=== PATIENT | male | born 1965 | race African-American/Black ===

== ENCOUNTER → 2016-08-03 | Outpatient (CLI) | payer OTHER ==
--- NOTE | 2016-08-03 10:06 | CT ---
EXAMINATION TYPE: CT abdomen pelvis w con DATE OF EXAM: 08/03/2016 COMPARISON: NONE HISTORY: Epigastric pain CT DLP: 979.1 mGycm, Automated Exposure Control for Dose Reduction was Utilized. CONTRAST: CT scan of the abdomen and pelvis is performed with oral and with IV Contrast, patient injected with 100 mL of Omnipaque 300. FINDINGS: LUNG BASES: No significant abnormality is appreciated. LIVER/GB: No significant abnormality is appreciated. PANCREAS: No significant abnormality is seen. SPLEEN: No significant abnormality is seen. ADRENALS: No significant abnormality is seen. KIDNEYS: No significant abnormality is seen. BOWEL: Oral contrast only reaches level of the proximal ileum in the right lower quadrant. There is n o suspicious dilatation of stomach or small bowel loops. Fecal material is seen in nondistended colon terminal ileum is felt within normal limits seen near coronal image 41. The amount of fecal material is somewhat prominent throughout the visualized colon. Appendix is upper limits of normal in size wi thout inflammatory change seen best near axial images 49 through 55. PROSTATE/SEMINAL VESICLES: Prostate gland is upper limits of normal in size slightly bulging on bladd er base. LYMPH NODES: No greater than 1cm abdominal or pelvic lymph nodes are appreciated. OSSEOUS STRUCTURES: There is mild multilevel facet arthropathy in the lower lumbar spine. OTHER: Some ectasia of the abdominal aorta is present. IMPRESSION: No bowel obstruction is seen. Perhaps mild diffuse colonic fecal stasis or constipation. No significant acute finding is otherwise seen to account for patient's clinical symptoms.
== END | disposition home or self-care (01) ==
LOC: RADCTMAIN 07:58
PROVIDERS: ATTEND Internal Medicine
DX: R10.13 Epigastric pain (principal)
CPT/HCPCS: 74177; Q9967

== ENCOUNTER 2017-04-26 12:21 | Emergency (ER) | payer OTHER ==
[2017-04-26 12:26] VITALS: BP 141/89; PULSE 104; RESP 18; TEMP 96.8
--- NOTE | 2017-04-26 12:44 | XR ---
EXAMINATION TYPE: XR Hip Complete LT DATE OF EXAM: 04/26/2017 COMPARISON: NONE HISTORY: Pain TECHNIQUE: 2 views submitted FINDINGS: There is no evidence of erosive change or acute fracture. Moderate concentric narrowing the joint. IMPRESSION: 1. No evidence of acute fracture or dislocation. 2. Hip arthropathy.
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
== END 2017-04-26 13:12 | disposition home or self-care (01) ==
LOC: EC 12:21
DX: M54.5 Low back pain (principal); M25.552 Pain in left hip; F17.200 Nicotine dependence, unspecified, uncomplicated; Z88.5 Allergy status to narcotic agent; V89.2XXA Person injured in unspecified motor-vehicle accident, traffic, initial encounter; Y92.410 Unspecified street and highway as the place of occurrence of the external cause
CPT/HCPCS: 73502; 99283

== ENCOUNTER 2017-12-25 15:25 | Emergency (ER) | payer OTHER ==
[2017-12-25 15:40] VITALS: RESP 18; TEMP 98.4
--- NOTE | 2017-12-25 16:38 | XR ---
EXAMINATION TYPE: XR hand complete RT DATE OF EXAM: 12/25/2017 COMPARISON: None HISTORY: Right hand and wrist pain since fall TECHNIQUE: Three-view right hand FINDINGS: No acute fractures are evident. Joint spaces are preserved. Soft tissues are somewhat promi nent over the hand. Note is made of an old fifth metacarpal fracture. IMPRESSION: 1. No acute osseous abnormality. 2. Soft tissue swelling over the dorsum of the hand.
--- NOTE | 2017-12-25 16:39 | XR ---
EXAMINATION TYPE: XR wrist complete RT DATE OF EXAM: 12/25/2017 COMPARISON: None HISTORY: Pain in wrist since fall TECHNIQUE: 4 view right wrist FINDINGS: Soft tissue swelling is over the dorsum of the hand. Old fifth metacarpal fracture is withi n the [id number]. No acute fractures are evident. Joint spaces are preserved. If there is pain at the anatomic snuff box, nuclear medicine bone scan would be recommended for addit ional evaluation. Follow-up exams of the hand and wrist can be performed 7-10 days from acute trauma for continued pain. IMPRESSION: 1. Normal 4 view right wrist. 2. Soft tissue swelling dorsum of hand.
[2017-12-25] MEDS ORDERED: HYDROcodone/APAP 5-325MG 1 EACH TAB PO STA (17:02)
[2017-12-25 17:59] VITALS: BP 163/75; PULSE 87
[2017-12-25] MEDS ORDERED: ACET/COD 300 MG/30 MG STARTER PACK 6 TAB BTL PO STA (18:08)
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
== END 2017-12-25 18:21 | disposition home or self-care (01) ==
LOC: EC 15:25
DX: S63.91XA Sprain of unspecified part of right wrist and hand, initial encounter (principal); F17.200 Nicotine dependence, unspecified, uncomplicated; Z88.5 Allergy status to narcotic agent; W01.0XXA Fall on same level from slipping, tripping and stumbling without subsequent striking against object, initial encounter; Y93.01 Activity, walking, marching and hiking
CPT/HCPCS: 29125; 99284

== ENCOUNTER 2018-04-10 16:10 | Emergency (ER) | payer OTHER ==
[2018-04-10 16:28] VITALS: BP 136/88; PULSE 67; RESP 18; TEMP 98.5
--- NOTE | 2018-04-10 16:50 | ED ---
Skin/Abscess/FB HPI - General Chief complaint: Skin/Abscess/Foreign Body Stated complaint: Poss bug bite on face and hand Time Seen by Provider: 04/10/18 16:23 Source: patient, RN notes reviewed, old records reviewed Mode of arrival: ambulatory Limitations: no limitations - History of Present Illness Initial comments: This is a 52-year-old male the ER for evaluation. Patient states over 90 believes he was by a bug. Unsure of cause. No one else in the house a similar condition or bite, patient does have itching to hands and face. No other rash noted. No other lesions noted, no other symptoms noted MD complaint: insect bite/sting -: hour(s) Location: face, L hand Severity: mild Severity scale (1-10): 2 Consistency: constant Improves with: none Worsens with: none Context: none Associated symptoms: itching Treatments Prior to Arrival: none - Related Data Previous Rx's Medication Instructions Recorded Cyclobenzaprine [Flexeril] 10 mg PO TID #12 tab 04/26/17 Ibuprofen 600 mg PO Q6HR #15 tablet 04/26/17 Amoxic-Pot Clav 875-125Mg 1 tab PO Q12HR #20 tablet 04/10/18 [Augmentin 875-125] hydrOXYzine HCL [Atarax] 25 mg PO TID PRN #15 tab 04/10/18 predniSONE 50 mg PO DAILY #5 tab 04/10/18 Allergies Allergy/AdvReac Type Severity Reaction Status Date / Time codeine Allergy Nausea & Verified 12/25/17 15:40 Vomiting Review of Systems ROS Statement: Those systems with pertinent positive or pertinent negative responses have been documented in the HPI. ROS Other: All systems not noted in ROS Statement are negative. Past Medical History Past Medical History: No Reported History History of Any Multi-Drug Resistant Organisms: None Reported Past Surgical History: Orthopedic Surgery Additional Past Surgical History / Comment(s): plates in left ankle Past Psychological History: No Psychological Hx Reported Smoking Status: Current every day smoker Past Alcohol Use History: Occasional Past Drug Use History: None Reported General Exam - General Exam Comments Initial Comments: Patient is solitary bug bite to left hand and underneath the left eye, left eye is draining clear fluid Limitations: no limitations General appearance: alert, in no apparent distress Head exam: Present: atraumatic, normocephalic, normal inspection Eye exam: Present: normal appearance, PERRL, EOMI. Absent: scleral icterus, conjunctival injection, periorbital swelling ENT exam: Present: normal exam, mucous membranes moist Neck exam: Present: normal inspection. Absent: tenderness, meningismus, lymphadenopathy Respiratory exam: Present: normal lung sounds bilaterally. Absent: respiratory distress, wheezes, rales, rhonchi, stridor Cardiovascular Exam: Present: regular rate, normal rhythm, normal heart sounds. Absent: systolic murmur, diastolic murmur, rubs, gallop, clicks GI/Abdominal exam: Present: soft, normal bowel sounds. Absent: distended, tenderness, guarding, rebound, rigid Extremities exam: Present: normal inspection, full ROM, normal capillary refill. Absent: tenderness, pedal edema, joint swelling, calf tenderness Back exam: Present: normal inspection Neurological exam: Present: alert, oriented X3, CN II-XII intact Psychiatric exam: Present: normal affect, normal mood Skin exam: Present: warm, dry, intact, normal color. Absent: rash Course Vital Signs 04/10/18 16:24 Temperature 98.5 F Pulse Rate 67 Respiratory 18 Rate Blood Pressure 136/88 O2 Sat by Pulse 98 Oximetry Medical Decision Making - Medical Decision Making 49 female the ER for evaluation presents with bug with. Patient be placed on antibiotics prophylaxis as well as medication for itching and steroids. Patient can be discharged home Disposition Clinical Impression: Bug bite of left hand, Bug bite of face without infection Disposition: HOME SELF-CARE Condition: Good Instructions (If sedation given, give patient instructions): Insect Bite or Sting (ED) Prescriptions: Amoxic-Pot Clav 875-125Mg [Augmentin 875-125] 1 tab PO Q12HR #20 tablet hydrOXYzine HCL [Atarax] 25 mg PO TID PRN #15 tab PRN Reason: Itching predniSONE 50 mg PO DAILY #5 tab Is patient prescribed a controlled substance at d/c from ED?: No Referrals: Trav Bangura MD [Primary Care Provider] - 1-2 days
== END 2018-04-10 17:12 | disposition home or self-care (01) ==
LOC: EC 16:10
DX: S00.86XA Insect bite (nonvenomous) of other part of head, initial encounter (principal); S60.562A Insect bite (nonvenomous) of left hand, initial encounter; F17.200 Nicotine dependence, unspecified, uncomplicated; Z88.5 Allergy status to narcotic agent
CPT/HCPCS: 99283